=== PATIENT | female | born 1950 | race African-American/Black ===

== ENCOUNTER 2019-01-18 00:22 | Emergency (ER) | payer OTHER ==
[2019-01-18 01:48] LABS: Absolute Lymphocytes (CBC) 1.8 K/uL (0.7-4.9); Absolute Monocytes 0.3 K/uL (0.1-1.3); Absolute Neutrophil 7.2 K/uL (1.8-8.0); Basophils % 0.6 % (0-1.3); Eosinophils % 1.4 % (0-4.4); Hematocrit 36.4 % (36.0-45.0); Lymphocytes % 18.5 % (15.3-44.8); MPV 9.1 fL (7.6-11.3); Monocytes % 3.4 % (3.3-12.3); RBC Red Blood Cell Count 4.02 M/uL (3.86-4.86)
[2019-01-18] MEDS ORDERED: NA CHLORIDE 0.9% 1,000 ML ONE (01:53)
[2019-01-18 02:04] LABS: Albumin 3.4 g/dL (3.4-5.0); Bilirubin Direct 0.2 mg/dL (0-0.2); Bilirubin Total 0.6 mg/dL (0.2-1.0); Potassium 3.6 mmol/L (3.5-5.1); Protein, Total 7.5 g/dL (6.4-8.2)
--- NOTE | 2019-01-18 02:32 | ER ---
Nurse's Notes [facility] Name: Chery Duran Age: 68 yrs Sex: Female : 1950 Arrival Date: 01/18/2019 Time: 00:23 Bed 19 Private MD: Diagnosis: Unspecified abdominal pain;Vomiting Presentation: 01/18 00:45 Presenting complaint: Patient states: STARTED HAVING ABDOMINAL PAINS, DESCRIBED rv CRAMPING, AT AROUND 1800. VOMITED ONCE AVIATION MAINTENANCE TECHNICIAN. SHE HAD THE SAME SYMPTOMS WHEN SHE HAD A BOWEL OBSTRUCTION COUPLE OF YEARS AGO. LAST BM WAS THIS MORNING, NORMAL DESCRIBED. 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 ON BLOOD THINNER (BABY ASPIRIN). DENIES ANY FEVER. Transition of care: patient was not received from another setting of care. Onset of symptoms was January 17, 2019 at 18:00. Risk Assessment: Do you want to hurt yourself or someone else? Patient reports no desire to harm self or others. Initial Sepsis Screen: Does the patient meet any 2 criteria? No. Patient's initial sepsis screen is negative. Does the patient have a suspected source of infection? No. Patient's initial sepsis screen is negative. Care prior to arrival: None. 00:45 Method Of Arrival: Ambulatory rv 00:45 Acuity: NICK 3 rv Triage Assessment: 00:49 General: Appears in no apparent distress. comfortable, Behavior is calm, cooperative. rv Pain: Complains of pain in abdomen. Pain: Pain currently is 0 out of 10 on a pain scale. at worst was 7 out of 10 on a pain scale. EENT: No signs and/or symptoms were reported regarding the EENT system. Neuro: Level of Consciousness is awake, alert, obeys commands, Oriented to person, place, time, situation. Cardiovascular: Patient's skin is warm and dry. Respiratory: Airway is patent. GI: Abdomen is round non-distended, Last BM was January 17, 2019. at 08:00. Reports upper abdominal pain, cramping, nausea, vomiting. 00:59 : No signs and/or symptoms were reported regarding the genitourinary system. Derm: rv Skin is intact. Musculoskeletal: No signs and/or symptoms reported regarding the musculoskeletal system. Historical: - Allergies: 00:57 PENICILLINS; rv - Home Meds: 00:57 allopurinol 300 mg Oral tab 1 tab once daily [Active]; Bystolic 5 mg Oral tab 1 tab rv once daily [Active]; metformin 500 mg Oral tab 1 tab 2 times per day [Active]; amlodipine 5 mg tab 1 tab once daily [Active]; olmesartan oral oral 1 tab once daily [Active]; aspirin 81 mg Oral TbEC 1 tab once daily [Active]; - PMHx: 00:57 Diabetes - NIDDM; Gout; Hypertension; rv - PSHx: 00:57 Cholecystectomy; Hysterectomy; ; rv - Immunization history:: Adult Immunizations up to date. - Social history:: Smoking status: Patient/guardian denies using tobacco, never smoked. - Ebola Screening: : No symptoms or risks identified at this time. Screenin:57 Abuse screen: Denies threats or abuse. Denies injuries from another. Nutritional rv screening: No deficits noted. Tuberculosis screening: No symptoms or risk factors identified. Fall Risk None identified. Assessment: 00:59 GI: Bowel sounds present X 4 quads. Abd is non tender X 4 quads. rv 01:18 Reassessment: Patient appears in no apparent distress at this time. Patient and/or cc3 family updated on plan of care and expected duration. Pain level reassessed. Patient is alert, oriented x 3, equal unlabored respirations, skin warm/dry/pink. 02:46 Reassessment: Patient and/or family updated on plan of care and expected duration. Pain bb level reassessed. Patient is alert, oriented x 3, equal unlabored respirations, skin warm/dry/pink. pt states she has no pain at this time and verbalized understanding of and agrees to plan of care discharge instructions given pt ambulated with steady gait to exit accompanied by family Patient states feeling better. Patient states symptoms have improved. Vital Signs: 00:48 BP 141 / 81; Pulse 66; Resp 16; Temp 98.3; Pulse Ox 98% ; Weight 94.8 kg; Height 5 ft. rv 5 in. (165.10 cm); 02:48 BP 119 / 67; Pulse 59; Resp 16 S; Pulse Ox 98% on R/A; Pain 0/10; bb 00:48 Body Mass Index 34.78 (94.80 kg, 165.10 cm) rv ED Course: 00:23 Patient arrived in ED. am2 00:41 Heaven Stockton is Primary Nurse. cc3 00:48 Triage completed. rv 00:55 Adalid Stanley, KELLEE is PHCP. pm1 00:56 Deyvi Egan MD is Attending Physician. pm1 00:57 Patient has correct armband on for positive identification. Bed in low position. Call rv light in reach. Side rails up X 1. Adult w/ patient. Pulse ox on. NIBP on. 00:58 Arm band placed on right wrist. Patient placed in an exam room, on a stretcher, on rv oxygen, Patient notified of wait time. 01:49 Inserted saline lock: 22 gauge in left forearm, using aseptic technique. Blood oe collected. 02:49 No provider procedures requiring assistance completed. IV discontinued, intact, bb bleeding controlled, No redness/swelling at site. Pressure dressing applied. Administered Medications: 01:45 Drug: NS 0.9% 1000 ml Route: IV; Rate: 125 ml/hr; Site: left forearm; cc3 02:49 Follow up: IV Status: Order to discontinue infusion; IV Intake: 125ml bb Intake: 02:49 IV: 125ml; Total: 125ml. bb Outcome: 02:32 Discharge ordered by . pm1 02:49 Discharged to home ambulatory, with family. bb 02:49 Condition: stable 02:49 Discharge instructions given to patient, Instructed on discharge instructions, follow up and referral plans. Demonstrated understanding of instructions, follow-up care. 02:50 Patient left the ED. bb Signatures: Benita Peters, RN RN bb Adalid Stanley, KELLEE FORM SETTER HELPER pm1 Naveed Antunez Amanda am2 Angel Pereira RN RN Heaven Stockton cc3
--- NOTE | 2019-01-18 02:32 | EDPHYS ---
Physician Documentation [facility] Name: Chery Duran Age: 68 yrs Sex: Female : 1950 Arrival Date: 01/18/2019 Time: 00:23 Bed 19 Private MD: ED Physician Deyvi Egan HPI: 01/18 01:34 This 68 yrs old Black Female presents to ER via Ambulatory with complaints of Abdominal pm1 Pain, Vomiting. 01:34 The patient presents with abdominal pain that is diffuse. Onset: The symptoms/episode pm1 began/occurred yesterday, at 18:00. The symptoms do not radiate. 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 The symptoms are described as crampy. Modifying factors: The symptoms are alleviated by nothing, the symptoms are aggravated by nothing. Severity of pain: in the emergency department the pain has resolved is a 0 / 10. The patient has experienced a previous episode, approximately 3 years ago, presentation of symptoms similar to bowel obstruction in the past. The patient has not recently seen a physician. Historical: - Allergies: 00:57 PENICILLINS; rv - Home Meds: 00:57 allopurinol 300 mg Oral tab 1 tab once daily [Active]; Bystolic 5 mg Oral tab 1 tab rv once daily [Active]; metformin 500 mg Oral tab 1 tab 2 times per day [Active]; amlodipine 5 mg tab 1 tab once daily [Active]; olmesartan oral oral 1 tab once daily [Active]; aspirin 81 mg Oral TbEC 1 tab once daily [Active]; - PMHx: 00:57 Diabetes - NIDDM; Gout; Hypertension; rv - PSHx: 00:57 Cholecystectomy; Hysterectomy; ; rv - Immunization history:: Adult Immunizations up to date. - Social history:: Smoking status: Patient/guardian denies using tobacco, never smoked. - Ebola Screening: : No symptoms or risks identified at this time. ROS: 01:34 Constitutional: Negative for fever, chills, and weight loss, Eyes: Negative for injury, pm1 pain, redness, and discharge, ENT: Negative for injury, pain, and discharge, Neck: Negative for injury, pain, and swelling, Cardiovascular: Negative for chest pain, palpitations, and edema, Respiratory: Negative for shortness of breath, cough, wheezing, and pleuritic chest pain. 01:34 Back: Negative for injury and pain, : Negative for injury, bleeding, discharge, and swelling, MS/Extremity: Negative for injury and deformity, Skin: Negative for injury, rash, and discoloration, Neuro: Negative for headache, weakness, numbness, tingling, and seizure. 01:34 Abdomen/GI: Positive for abdominal pain, vomiting, Negative for diarrhea, constipation. Exam: 01:34 Constitutional: This is a well developed, well nourished patient who is awake, alert, pm1 and in no acute distress. Head/Face: Normocephalic, atraumatic. Eyes: Pupils equal round and reactive to light, extra-ocular motions intact. Lids and lashes normal. Conjunctiva and sclera are non-icteric and not injected. Cornea within normal limits. Periorbital areas with no swelling, redness, or edema. ENT: Nares patent. No nasal discharge, no septal abnormalities noted. Tympanic membranes are normal and external auditory canals are clear. Oropharynx with no redness, swelling, or masses, exudates, or evidence of obstruction, uvula midline. Mucous membranes moist. Neck: Trachea midline, no thyromegaly or masses palpated, and no cervical lymphadenopathy. Supple, full range of motion without nuchal rigidity, or vertebral point tenderness. No Meningismus. Chest/axilla: Normal chest wall appearance and motion. Nontender with no deformity. No lesions are appreciated. Cardiovascular: Regular rate and rhythm with a normal S1 and S2. No gallops, murmurs, or rubs. Normal PMI, no JVD. No pulse deficits. Respiratory: Lungs have equal breath sounds bilaterally, clear to auscultation and percussion. No rales, rhonchi or wheezes noted. No increased work of breathing, no retractions or nasal flaring. Abdomen/GI: Soft, non-tender, with normal bowel sounds. No distension or tympany. No guarding or rebound. No evidence of tenderness throughout. Back: No spinal tenderness. No costovertebral tenderness. Full range of motion. Skin: Warm, dry with normal turgor. Normal color with no rashes, no lesions, and no evidence of cellulitis. MS/ Extremity: Pulses equal, no cyanosis. Neurovascular intact. Full, normal range of motion. 01:34 Neuro: Orientation: is normal, Motor: moves all fours. Vital Signs: 00:48 BP 141 / 81; Pulse 66; Resp 16; Temp 98.3; Pulse Ox 98% ; Weight 94.8 kg; Height 5 ft. rv 5 in. (165.10 cm); 02:48 BP 119 / 67; Pulse 59; Resp 16 S; Pulse Ox 98% on R/A; Pain 0/10; bb 00:48 Body Mass Index 34.78 (94.80 kg, 165.10 cm) rv MDM: 00:57 Patient medically screened. josette 01:36 Data reviewed: vital signs. Data interpreted: Pulse oximetry: on room air is 98 %. pm1 Interpretation: normal. 02:27 Counseling: I had a detailed discussion with the patient and/or guardian regarding: lab pm1 results. 02:28 Refusal of service: The patient/guardian displays adequate decision making capability pm1 and despite a detailed discussion of alternatives, benefits, risks, and consequences refuses: CT Scan, since the patient's pain resolved prior to arrival to the ER and she is not having any pain now, the patient decided that she did not want the CT scan since all of her blood work is within normal limits. Family is present in the room with patient's decision. Discussed return precautions if the patient symptoms return or worsen. 01/18 01:02 Order name: Basic Metabolic Panel pm1 01/18 01:02 Order name: CBC with Diff pm1 01/18 01:02 Order name: Creatinine for Radiology; Complete Time: 02:03 pm1 01/18 01:02 Order name: Hepatic Function; Complete Time: 02:04 pm1 01/18 01:02 Order name: Lipase; Complete Time: 02:04 pm1 01/18 01:03 Order name: Basic Metabolic Panel; Complete Time: 02:04 EDMS 01/18 01:02 Order name: IV Saline Lock; Complete Time: 05:50 pm1 01/18 01:02 Order name: Labs collected and sent; Complete Time: 05:50 pm1 01/18 01:03 Order name: CBC with Automated Diff; Complete Time: 01:59 EDMS Administered Medications: 01:45 Drug: NS 0.9% 1000 ml Route: IV; Rate: 125 ml/hr; Site: left forearm; cc3 02:49 Follow up: IV Status: Order to discontinue infusion; IV Intake: 125ml bb Disposition: 07:14 Co-signature as Attending Physician, Deyvi Egan MD I agree with the assessment and josette plan of care. Chart complete. Disposition: 01/18/19 02:32 Discharged to Home. Impression: Unspecified abdominal pain, Vomiting. - Condition is Stable. - Discharge Instructions: Abdominal Pain, Adult, Vomiting, Adult. - Medication Reconciliation Form, Thank You Letter, Antibiotic Education, Prescription Opioid Use form. - Follow up: Emergency Department; When: As needed; Reason: Worsening of condition. Follow up: Private Physician; When: 2 - 3 days; Reason: Recheck today's complaints, Continuance of care, Re-evaluation by your physician. - Problem is new. - Symptoms have improved. Signatures: Dispatcher [employer] [facility] Deyvi Egan MD MD cha Ballard, Brenda, RN RN bb Adalid Stanley, SHRIMPING BOAT CAPTAIN SHRIMPING BOAT CAPTAIN pm1 Angel Pereira RN RN rv Heaven Stockton cc3 Corrections: (The following items were deleted from the chart) 02:39 01:04 Abdomen Pelvis W Con+CT.RAD.BRZ ordered. [facility] 02:50 02:32 01/18/2019 02:32 Discharged to Home. Impression: Unspecified abdominal pain; bb Vomiting. Condition is Stable. Forms are Medication Reconciliation Form, Thank You Letter, Antibiotic Education, Prescription Opioid Use. Follow up: Emergency Department; When: As needed; Reason: Worsening of condition. Follow up: Private Physician; When: 2 - 3 days; Reason: Recheck today's complaints, Continuance of care, Re-evaluation by your physician. Problem is new. Symptoms have improved. pm1
[2019-01-18 02:55] VITALS: TEMP 98.3; O2SAT 98
[2019-01-18 02:57] VITALS: BP 119/67
== END 2019-01-18 02:50 | disposition home or self-care (01) ==
LOC: ER 00:22
DX: R11.10 Vomiting, unspecified (principal); I10 Essential (primary) hypertension; E11.9 Type 2 diabetes mellitus without complications; Z79.82 Long term (current) use of aspirin; Z88.0 Allergy status to penicillin
CPT/HCPCS: 85025; 80048; 36415; 80076; 83690; 96360; 99284; J7030